=== PATIENT | female | born 1995 | race Hispanic/Latino ===

== ENCOUNTER 2022-01-08 12:03 | Emergency (ER) | payer BC ==
--- NOTE | 2022-01-08 13:22 | RAD REPORT ---
EXAM DESCRIPTION: USExtremity Venous Uni Ltd01/08/2022 12:56 pm CLINICAL HISTORY: left leg pain COMPARISON: None FINDINGS: Left common femoral, superficial femoral, popliteal and posterior tibial veins are compre ssible and demonstrate augmentation. Doppler demonstrates good flow. Grayscale, color and spectral analysis performed on all vessels IMPRESSION: No evidence of deep venous thrombosis involving the left lower extremity.
--- NOTE | 2022-01-08 13:55 | ER ---
Nurse's Notes [facility] Name: Rosalee Jauregui Age: 26 yrs Sex: Female : 1995 Arrival Date: 01/08/2022 Time: 12:04 Bed 1 Private MD: Diagnosis: Pain in left lower leg Presentation: 01/08 12:20 Chief complaint: LLE swelling and intermittent pain in calf x 6 weeks. Denies injury. iw Coronavirus screen: At this time, the client does not indicate any symptoms associated with coronavirus-19. Ebola Screen: No symptoms or risks identified at this time. Initial Sepsis Screen: Does the patient meet any 2 criteria? No. Patient's initial sepsis screen is negative. Does the patient have a suspected source of infection? No. Patient's initial sepsis screen is negative. Risk Assessment: Do you want to hurt yourself or someone else? Patient reports no desire to harm self or others. Onset of symptoms was November 2021. 12:20 Method Of Arrival: Ambulatory iw 12:20 Acuity: JOSE 3 iw Historical: - Allergies: 12:21 Bactrim; iw 12:21 Doxycycline; iw - Immunization history:: Adult Immunizations up to date. - Social history:: Smoking status: Patient denies any tobacco usage or history of. Vital Signs: 12:20 BP 132 / 98; Pulse 68; Resp 16; Temp 98.2(TE); Pulse Ox 100% on R/A; Weight 54.43 kg; iw Height 5 ft. 4 in. (162.56 cm); Pain 3/10; 12:20 Body Mass Index 20.60 (54.43 kg, 162.56 cm) iw ED Course: 12:04 Patient arrived in ED. am2 12:07 Mandy Moore FNP-C is PHCP. kb 12:07 Jeffrey Fields DO is Attending Physician. kb 12:21 Triage completed. iw 12:58 US Extremity Venous Unilateral Ltd In Process Unspecified. EDMS 14:01 Kristal Rivas, RN is Primary Nurse. iw Administered Medications: No medications were administered Outcome: 13:55 Discharge ordered by . kb 14:01 Patient left the ED. iw Signatures: Dispatcher [employer] EDMS Mandy Moore FNP-C FNP-Ckb Williams, Irene RN RN iw Blayne Kat am2
--- NOTE | 2022-01-08 13:55 | EDPHYS ---
Physician Documentation [facility] Name: Rosalee Jauregui Age: 26 yrs Sex: Female : 1995 Arrival Date: 01/08/2022 Time: 12:04 Bed 1 Private MD: ED Physician Jeffrey Fields HPI: 01/08 13:56 This 26 yrs old Female presents to ER via Ambulatory with complaints of Leg kb Pain, Leg Swelling, r/o dvt. 13:56 The patient presents with pain, swelling. The complaints affect the left calf. Context: kb The problem was sustained at home, the patient can fully bear weight, the patient is able to ambulate. Onset: The symptoms/episode began/occurred 6 week(s) ago. Modifying factors: The symptoms are alleviated by nothing. the symptoms are aggravated by nothing. Associated signs and symptoms: Pertinent positives: swelling, Pertinent negatives calf tenderness, fever, nausea, numbness, rash, tingling, vomiting, warmth, weakness. Treatment prior to arrival includes: no previous treatment. Severity of symptoms: At their worst the symptoms were moderate, in the emergency department the symptoms are unchanged. The patient has not experienced similar symptoms in the past. The patient has been recently seen at an urgent care, just prior to arrival, for similar complaints, and was sent to the [facility] Emergency Department for further evaluation. Historical: - Allergies: 12:21 Bactrim; iw 12:21 Doxycycline; iw - Immunization history:: Adult Immunizations up to date. - Social history:: Smoking status: Patient denies any tobacco usage or history of. ROS: 13:55 Constitutional: Negative for fever, chills, and weight loss. kb 13:55 MS/extremity: Positive for pain, swelling, of the left calf. 13:55 All other systems are negative. Exam: 13:55 Constitutional: This is a well developed, well nourished patient who is awake, alert, kb and in no acute distress. Head/Face: Normocephalic, atraumatic. ENT: Moist Mucous membranes Cardiovascular: Regular rate and rhythm with a normal S1 and S2. No gallops, murmurs, or rubs. No pulse deficits. Respiratory: Respirations even and unlabored. No increased work of breathing. Talking in full sentences Skin: Warm, dry with normal turgor. Normal color. MS/ Extremity: Pulses equal, no cyanosis. Neurovascular intact. Full, normal range of motion. Neuro: Awake and alert, GCS 15, oriented to person, place, time, and situation. Moves all extremities. Normal gait. Psych: Awake, alert, with orientation to person, place and time. Behavior, mood, and affect are within normal limits. Vital Signs: 12:20 BP 132 / 98; Pulse 68; Resp 16; Temp 98.2(TE); Pulse Ox 100% on R/A; Weight 54.43 kg; iw Height 5 ft. 4 in. (162.56 cm); Pain 3/10; 12:20 Body Mass Index 20.60 (54.43 kg, 162.56 cm) iw MDM: 12:14 Patient medically screened. kb 13:55 Data reviewed: vital signs, nurses notes. Data interpreted: Pulse oximetry: on room air kb is 100 %. Interpretation: normal. Counseling: I had a detailed discussion with the patient and/or guardian regarding: the historical points, exam findings, and any diagnostic results supporting the discharge/admit diagnosis, radiology results, the need for outpatient follow up, a family practitioner, to return to the emergency department if symptoms worsen or persist or if there are any questions or concerns that arise at home. 01/08 12:14 Order name: US Extremity Venous Unilateral Ltd; Complete Time: 13:32 kb Administered Medications: No medications were administered Disposition: 21:23 Co-signature as Attending Physician, Jeffrey Fields DO I agree with the assessment and ms3 plan of care. Disposition Summary: 01/08/22 13:55 Discharge Ordered Location: Home kb Condition: Stable kb Diagnosis - Pain in left lower leg kb Followup: kb - With: Emergency Department - When: As needed - Reason: Worsening of condition Followup: kb - With: Private Physician - When: 2 - 3 days - Reason: Recheck today's complaints, Continuance of care, Re-evaluation by your physician Discharge Instructions: - Discharge Summary Sheet kb - Musculoskeletal Pain kb Forms: - Medication Reconciliation Form kb - Thank You Letter kb - Antibiotic Education kb - Prescription Opioid Use kb Signatures: Dispatcher [employer] Mandy Kendrick, VALARIE-C VALARIE-Kristal Del Real, RN Jeffrey Bess DO DO ms3
[2022-01-08 14:12] VITALS: BP 132/98; TEMP 98.2; O2SAT 100
== END 2022-01-08 14:01 | disposition home or self-care (01) ==
LOC: ER 12:03
DX: M79.662 Pain in left lower leg (principal); Z88.1 Allergy status to other antibiotic agents
CPT/HCPCS: 93971